=== PATIENT | female | born 2000 | race Caucasian/White ===

== ENCOUNTER 2024-12-03 14:27 | Emergency (ER) | payer BC ==
[~2024-12-03] VITALS: Ht 170.2 cm; Wt 72.9 kg
[2024-12-03 15:43] LABS: BASO # 0.0 10^3/uL (0.0-0.2); BASO % 0.6 % (0.0-1.0); EOS # 0.2 10^3/uL (0.0-0.5); EOS % 3.2 % (0.0-3.0); LYMPH # 2.0 10^3/uL (1.5-5.0); LYMPH % 30.0 % (24.0-44.0); MONO # 0.5 10^3/uL (0.0-0.8); MONO % 7.8 % (2.0-8.0); NEUTROPHILS # 3.9 10^3/uL (1.5-8.5); NEUTROPHILS % 58.2 % (36.0-66.0); PLATELET COUNT, AUTOMATED 303 10^3/uL (150-450)
[2024-12-03 16:06] LABS: ALT/SGPT 20 U/L (7.0-40); AST/SGOT 17 U/L (<34); CALCIUM LEVEL 9.1 MG/DL (8.5-10.1); CARBON DIOXIDE LEVEL 31 MMOL/L (20-31); CHLORIDE LEVEL 103 MMOL/L (98-107); CREATININE FOR GFR 0.89 MG/DL (0.55-1.30); GLOMERULAR FILTRATION RATE > 90.0 (>60); MAGNESIUM LEVEL 2.0 MG/DL (1.8-2.4); POTASSIUM SERUM 3.8 MMOL/L (3.5-5.1); SODIUM LEVEL 143 MMOL/L (136-145)
[2024-12-03 16:12] LABS: HCG, SERUM QUALITATIVE NEGATIVE (NEGATIVE)
[2024-12-03] MEDS: NS (Normal Saline) 0.9% 1,000 ML IV ONE (18:26)
[2024-12-03] MEDS: MECLIZINE 25 MG TABLET PO ONE (18:31)
[2024-12-03 18:52] LABS: CK-MB VALUE MASS < 1.0 NG/ML (<3.6)
[2024-12-03 18:54] LABS: CPK CREATINE PHOSPHOKINASE 48 U/L (34-145)
[2024-12-03 19:04] LABS: CK-MB VALUE MASS < 1.0 NG/ML (<3.6)
[2024-12-03 19:08] LABS: CPK CREATINE PHOSPHOKINASE 47 U/L (34-145)
[2024-12-03] MEDS ORDERED: COLA100C5 PO (19:36)
[2024-12-03] MEDS ORDERED: HOLTER MONITOR XX (19:38)
[2024-12-03 19:51] VITALS: BP 124/74; TEMP 98.4; O2SAT 99
== END 2024-12-03 20:00 | disposition home or self-care (01) ==
LOC: M ED 14:27
DX: R55 Syncope and collapse (principal); K59.00 Constipation, unspecified; R00.2 Palpitations; R74.8 Abnormal levels of other serum enzymes; G43.909 Migraine, unspecified, not intractable, without status migrainosus; F12.10 Cannabis abuse, uncomplicated